=== PATIENT | male | born 1990 | race Two or more races ===

== ENCOUNTER 2019-09-14 23:26 | Emergency (ER) | payer OTHER ==
[~2019-09-14] VITALS: Ht 182.9 cm; Wt 125.8 kg
[2019-09-15] MEDS ORDERED: SODIUM CHLORIDE FLUSH 10ML SYR IVF ONE
[2019-09-15] MEDS ORDERED: ASPIRIN 81 MG TABLET CHEW PO ONE
--- NOTE | 2019-09-15 | NUR ---
long winder tender # [id number] assumed care of pt. pt here for s/o L side Cp with nausea and 3 episodes of vomiting [employer]. pt is hypertensive and tachycardic. skin pink warn and dry. no apparent resp distress. no vomiting at this time. pt updated on POC
--- NOTE | 2019-09-15 00:11 | NUR ---
lab has been to bedside to draw
[2019-09-15 00:21] LABS: BASOPHILS # (AUTO) 0.02 x10^3/uL (0-0.1); BASOPHILS % (AUTO) 0 % (0-1); EOSINOPHILS # (AUTO) 0.77 x10^3/uL (0-0.4); EOSINOPHILS % (AUTO) 7 % (1-7); LYMPHOCYTES # (AUTO) 4.02 x10^3/uL (1-3.4); LYMPHOCYTES % (AUTO) 38 % (22-44); MD NO; MEAN CORPUSCULAR HEMOGLOBIN 28.4 pg (27.5-34.5); MEAN CORPUSCULAR HGB CONC 33.7 g/dL (33.2-36.2); MEAN CORPUSCULAR VOLUME 84.4 fL (81-97); MEAN PLATELET VOLUME 8.5 fL (7.4-10.4); MONOCYTES # (AUTO) 1.08 x10^3/uL (0.2-0.8); MONOCYTES % (AUTO) 10 % (2-9); NEUTROPHILS % (AUTO) 45 % (42-75); PLATELET COUNT 342 x10^3/uL (130-400); RED CELL DISTRIBUTION WIDTH 12.5 % (9.4-14.8)
[2019-09-15] MEDS ORDERED: ASPIRIN 81 MG TABLET CHEW ONE (00:21)
[2019-09-15] MEDS ORDERED: NITROGLYCERIN SINGLE TAB 0.4 MG SL ONE (00:24)
[2019-09-15 00:27] LABS: ALANINE AMINOTRANSFERASE 64 U/L (12-78); ALBUMIN 3.8 g/dL (3.4-5.0); ANION GAP 8 mmol/L (5-15); CALCIUM 9.1 mg/dL (8.5-10.1); CHLORIDE 107 mmol/L (98-107); CREATININE 0.72 mg/dL (0.7-1.3)
[2019-09-15] MEDS: NITROGLYCERIN SINGLE TAB 0.4 MG SL PRN ×2 (00:27→00:32)
[2019-09-15 00:31] LABS: ALKALINE PHOSPHATASE 76 U/L (45-117); BILIRUBIN,TOTAL 0.2 mg/dL (0.2-1.0); TOTAL PROTEIN 8.2 g/dL (6.4-8.2); TROPONIN I < 0.015 ng/mL (0.000-0.045)
--- NOTE | 2019-09-15 00:34 | NUR ---
pt at bedside. pt fluent in [place]zamb[place] and portuguese
--- NOTE | 2019-09-15 00:55 | NUR ---
pt in RAD for CT scan
[2019-09-15] MEDS ORDERED: MORPHINE SULFATE 4 MG/ML, 1ML IVPush ONE (01:00)
[2019-09-15] MEDS ORDERED: OMNIPAQUE 350 MG/ML, 100ML BOTTLE ONE (01:10)
--- NOTE | 2019-09-15 01:14 | NUR ---
pt declines pain meds at this andree. reports that he is currently pain free per at bedside. pt made aware that he can have pain meds later if he needs them. pt verbalized understanding
--- NOTE | 2019-09-15 01:38 | NUR ---
report to [facility] SORENSON for lunch
--- NOTE | 2019-09-15 03:00 | NUR ---
MD has been to bedside for recheck. pt to have repeat troponin
--- NOTE | 2019-09-15 03:18 | NUR ---
llab has been to bedside for draw. awaiting test results
[2019-09-15 03:22] LABS: TROPONIN I < 0.015 ng/mL (0.000-0.045)
[2019-09-15 03:52] VITALS: BP 133/97
== END 2019-09-15 03:57 | disposition home or self-care (01) ==
LOC: ED 23:56
DX: R07.89 Other chest pain (principal); R11.2 Nausea with vomiting, unspecified; R00.0 Tachycardia, unspecified; I10 Essential (primary) hypertension
CPT/HCPCS: 36415; 71045; 71275; 74175; 80053; 84484; 85025; 85379; 93005; 99285; Q9967

== ENCOUNTER → 2020-09-07 | Outpatient (CLI) | payer OTHER | END | disposition home or self-care (01) | LOC: CVU 07:51 | PROVIDERS: ATTEND Internal Medicine Cardiovascular Disease | DX: I11.9 Hypertensive heart disease without heart failure (principal); R07.89 Other chest pain | CPT/HCPCS: 93306; 93975 ==